=== PATIENT | female | born 1950 | race African-American/Black ===

== ENCOUNTER 2017-02-07 19:11 | Inpatient (IN) | payer MEDICARE ==
--- NOTE | ~2017-02-07 | DS ---
Discharge Summary [facility] [address] [place]. [address] NAME: VENITA FUNK : 50 STATUS : DIS IN PAT#: [id number] AGE: 66 ADM/REG DATE : 02/07/17 MR#: [id number] REPORT SERV DATE: 02/18/17 DICTATED BY: EDWIN XAVIER DATE: 02/18/17 REPORT STATUS : Draft TRANSCRIBED BY: MODMagdaelno DATE: 02/18/17 Data Collection from hospitalization DISCHARGE DIAGNOSES: 1. Seizure. 2. Noncompliance with medications. 3. End-stage renal disease. 4. Hypertension. 5. Anemia. 6. Congestive heart failure. 7. History of cerebrovascular accident. 8. Coronary artery disease. 9. Hyperlipidemia. 10.Tobacco use. CONSULTATIONS: None. PROCEDURES PERFORMED: CT scan of the brain without contrast, 02/07/2017. DISCHARGE MEDICATIONS: Ventolin 2 puffs via inhaler daily as needed, Zyloprim 100 mg daily, Cordarone 200 mg twice a day, Eliquis 2.5 mg daily, Lipitor 20 mg at bedtime, Coreg 6.25 mg twice a day, folic acid 1 mg daily, Fulton 5/325 half tablet every 6 hours as needed, Keppra 250 mg twice a day, Cozaar 50 mg at bedtime, Reglan 5 mg twice a day, Protonix 20 mg daily, and Lyrica 50 mg twice a day. CONDITION AT DISCHARGE: Stable. DISPOSITION: The patient was discharged home to be followed by Home Health Care on a renal diet with activities as instructed. She would follow up with dialysis as previously scheduled. HOSPITAL COURSE: This is a 66-year-old female, who has end-stage renal disease; hypertension, noncompliant; congestive heart failure; coronary artery disease; and a history of CVA; who had undergone dialysis on the day of this admission. She got off the bus and was walking across the yard and collapsed, and began having tonic-clonic seizure activity. She was transported to the emergency room for further evaluation and treatment. She had been hospitalized two weeks prior to this admission at [facility] with similar issues. On reviewing notes from that time, she had been admitted at [facility] with seizures and then transferred to [facility]. She had been seen by Neurology there. It was thought that the seizure may have been associated with hypoglycemia, but it was not entirely clear. She was started on oral Keppra and discharged home. Her family states that she does not take her medications regularly including the Keppra. According to them, they think she did not get it picked up until this week. On presentation here, her white count was 9.6, platelets were 217, and hemoglobin was 11.1. Chest x-ray showed low lung volumes, but no acute findings. Electrolytes revealed a potassium of 4.5, with BUN of 15, and creatinine 4.49, with a glucose of 85. Troponins of 0.05, with a magnesium of 1.6. She was admitted to the hospital at this time for further evaluation and treatment. Discharge Summary [address] [place]. [address] NAME: VENITA FUNK : 50 STATUS : DIS IN PAT#: [id number] AGE: 66 ADM/REG DATE : 02/07/17 MR#: [id number] REPORT SERV DATE: 02/18/17 DICTATED BY: EDWIN XAVIER DATE: 02/18/17 REPORT STATUS : Draft TRANSCRIBED BY: TUSHAR DATE: 02/18/17 Upon admission, review of her CT scan done at [facility] revealed no acute findings excluding "enlarged sella." An MRI was not recommended at that time. The Keppra was given. The patient would be held n.p.o. until the postictal state improves. CT scan of the brain without contrast was performed. There was atrophy with slightly more atrophy in the cerebellar hemispheres, question history of chronic phenytoin usage. Following day, she has had no further seizures. Today, complained of being dizzy. Creatinine level was 4.49. Cozaar was stopped. She did have some hypotension. Keppra was continued. On 02/09/2017, she complained of some foot pain, and complained of a headache. She had no further seizures. Her abdomen was soft and nontender. Creatinine level was now 8.24. Over the next couple of days, she continued to do well. She had no new complaints. Discharge planning was performed. Hemodialysis therapy was continued. She was evaluated by Physical Therapy. On 02/11/2017, she was alert and cooperative. She had no focal deficits. She had no edema. She had no further seizures. Her seizure was felt secondary to noncompliance. Discharge instructions were given. Due to her improved and stable condition, she was discharged home to be followed by Home Health Care with the above-stated instructions. Information collected by: Donna White I submit the above information as my discharge summary. [facility]/TUSHAR Edwin Xavier M.D. / [id number] CC: Sukh Feng M.D.
--- NOTE | ~2017-02-07 | HP ---
History And Physical [place] [id number] [facility] [place]. [address] NAME: VENITA FUNK : 50 STATUS : ADM IN PAT#: [id number] AGE: 66 ADM/REG DATE : 02/07/17 MR#: [id number] REPORT SERV DATE: 02/07/17 DICTATED BY: ORALIA MCGRAW DATE: 02/07/17 REPORT STATUS : Draft TRANSCRIBED BY: TUSHAR DATE: 02/07/17 DATE OF ADMISSION: 02/07/2017 CHIEF COMPLAINT: Seizure. HISTORY OF PRESENT ILLNESS: Ms Funk is a 66-year-old female with past medical history of end-stage renal disease, hypertension, noncompliance, congestive heart failure, coronary artery disease, and history of CVA who returned from dialysis today. She got off the bus and was walking across the yard and collapsed and began having tonic-clonic seizure activity. She was transported to the ER for further evaluation and treatment. She was hospitalized two weeks ago at [facility] with similar issues. Reviewing notes from that time, she had been admitted at [facility] with seizures and transferred to [facility]. She was seen by Neurology and there was thought that this may have been associated with hypoglycemia, but not entirely clear. She was started on oral Keppra and was discharged home. Her family states that she does not take her medications regularly including the Keppra. According to them, they think she did not get it picked up until this week. On presentation here, her WBC count was 9.6, hemoglobin 11.1, and platelets 217. Chest x-ray shows low lung volumes, but no acute findings. Electrolytes show a potassium of 4.5 with a BUN and creatinine of 15 and 4.49 with a glucose of 85. Her troponins were 0.05 with the magnesium of 1.6. Her CT scan is presently being done and the results are pending. PAST MEDICAL HISTORY: 1. End-stage renal disease, on hemodialysis Friday, Friday, Friday at [facility]. 2. Congestive heart failure. 3. Coronary artery disease, status post PCI in 2013. 4. History of CVA. 5. Hyperlipidemia. 6. Hypertension. FAMILY HISTORY: No documented renal disease. No prior history of seizures. SOCIAL HISTORY: She smokes cigarettes. No alcohol or drug use. Family is supportive and at bedside. HOME MEDICATIONS: 1. Albuterol two puffs inhaled daily. 2. Allopurinol 100 daily. 3. Amiodarone 200 twice a day. 4. Eliquis 2.5 daily. 5. Lipitor 20 daily. 6. Carvedilol 6.25 twice a day. 7. Folic acid 1 mg daily. 8. Hydrocodone/APAP 5/325 q.6 hours p.r.n. pain. 9. Keppra 250 twice a day. 10.Losartan 50 daily. History And Physical [address] [address] NAME: VENITA FUNK : 50 STATUS : ADM IN [facility]#: [id number] AGE: 66 ADM/REG DATE : 02/07/17 MR#: [id number] REPORT SERV DATE: 02/07/17 DICTATED BY: ORALIA MCGRAW DATE: 02/07/17 REPORT STATUS : Draft TRANSCRIBED BY: TUSHAR DATE: 02/07/17 11.Reglan 5 twice a day. 12.Protonix 20 daily. 13.Lyrica 50 mg twice a day. REVIEW OF SYSTEMS: All systems reviewed, negative excluding those mentioned and highlighted in the history of present illness. PHYSICAL EXAMINATION: VITAL SIGNS: Temperature 98.1, blood pressure 155/73, pulse 92, respiratory rate 15, and oxygen saturation 99%. GENERAL: This is a chronically ill, female, resting comfortably, somewhat sedate, appears postictal, but does arouse, in no acute distress. HEENT: Normocephalic and atraumatic. Oropharynx is clear. No exudate. NECK: Supple. No JVD or thyromegaly. No carotid bruits. Trachea midline. No stridor. CARDIOVASCULAR: Regular rate and rhythm. S1 and S2 without rubs or gallops. Point of maximal impulse is nondisplaced. RESPIRATORY: Clear to auscultation bilaterally. No wheeze, rhonchi, tachypnea, or accessory muscles in use. GI: Abdomen is soft, nontender, and nondistended. No hepatosplenomegaly appreciated. EXTREMITIES: No cyanosis, clubbing or edema. Distal pulses are 2+ symmetrically intact. SKIN: No rash or breakdown. Normal turgor. NEURO: Arouses. Moves all extremities to command. Alert and oriented to person and place, but confused on time. Strength is 3/5 x4 extremities. No obvious focality. SKIN: No rash or breakdown. Normal turgor. LABS AND DIAGNOSTIC DATA: Sodium 137, potassium 4.5, chloride 94, bicarb 31, BUN 15, creatinine 4.49, and glucose 85. WBC 9.6, hemoglobin 11.1, hematocrit 34.3, and platelets 217. ASSESSMENT: 1. Witnessed tonic-colonic seizure activity with recent presentation here in October and at [facility] two weeks ago. She did have an EEG here on 11/27, which showed no focal abnormalities. She had a CT scan done at [facility] that had no acute findings excluding "enlarged sella" that Neurology at that time did not recommend an MRI. Family questions her compliance with medications including Keppra that was recently started. 2. End-stage renal disease, on hemodialysis Friday, Friday, Friday. 3. Hypertension. 4. Coronary artery disease. 5. Hypertension. 6. ? diabetes mellitus. PLAN: 1. CT head, noncontrast. 2. Neurology consult. 3. IV Keppra for now. History And Physical [address] [address] NAME: VENITA FUNK : 50 STATUS : ADM IN [facility]#: [id number] AGE: 66 ADM/REG DATE : 02/07/17 MR#: [id number] REPORT SERV DATE: 02/07/17 DICTATED BY: ORALIA MCGRAW DATE: 02/07/17 REPORT STATUS : Draft TRANSCRIBED BY: MODL DATE: 02/07/17 4. N.p.o. until postictal state improves. 5. Records from [facility]. [facility] to follow. [facility]/TUSHAR Oralia Mcgraw M.D. / [id number] CC: Oralia Mcgraw M.D.
[2017-02-07 16:56] LABS: BASOPHILS 0.2 %; BASOPHILS ABSOLUTE 0.02 10/3/uL (0.0-0.16); EOSINOPHILS 1.3 %; EOSINOPHILS ABSOLUTE 0.12 10/3/uL (0.0-0.53); ER CBC TAT 0 Hrs 08 Mins; HEMOGLOBIN 11.1 g/dL (12.0-16.0); IMMATURE GRANULOCYTES 0.1 %; IMMATURE GRANULOCYTES ABSOLUTE 0.01 10/3/uL (0.0-0.11); LYMPHOCYTES 8.4 %; MEAN CORPUS HGB CONC 32.4 g/dL (32.0-36.0); MEAN CORPUSCULAR HEMOGLOB 31.2 pg (26.0-34.0); MEAN PLATELET VOLUME 10.7 fL (9.2-13.0); MONOCYTES 7.2 %; MONOCYTES ABSOLUTE 0.69 10/3/uL (0.21-1.20); NEUTROPHILS 82.8 %; NEUTROPHILS ABSOLUTE 7.94 10/3/uL (2.02-8.40); PLATELET COUNT 217 10/3/uL (150-400); RBC DISTRIBUTION WIDTH 16.7 % (12.0-16.0); RED CELL COUNT 3.56 10/6/uL (4.0-5.6); WHITE BLOOD CELLS 9.6 10/3/uL (4.5-10.5)
[2017-02-07 16:57] LABS: HEMATOCRIT 34.3 % (36.0-48.0); MANUAL DIFF NO %; MEAN CORPUSCULAR VOLUME 96.3 fL (80-100)
[2017-02-07 17:03] LABS: INTERNATIONAL NORMAL RATI 1.2 UNITS (-); PROTIME (NOT ORD) 15.2 SEC (12.0-14.5)
[2017-02-07 17:04] LABS: PARTIAL THROMBO TIME 36.4 SEC (22.5-37.2)
[2017-02-07 17:06] LABS: D-DIMER QUANTITATIVE 2.63 ug/mLFEU (< 0.50)
[2017-02-07 17:11] LABS: CHLORIDE, SERUM 94 MMOL/L (96-112); GLUCOSE, SERUM 85 MG/DL (60-99); POTASSIUM, SERUM 4.5 MMOL/L (3.5-5.3); SODIUM, SERUM 137 MMOL/L (135-148)
[2017-02-07 17:15] LABS: BUN (BLOOD UREA NITROGEN) 15 MG/DL (6-23); CALCIUM, SERUM 9.7 MG/DL (8.5-10.4); CO2 (CARBON DIOXIDE) 31 MMOL/L (24-34); CREATININE 4.49 MG/DL (0.55-1.02); GFR AFRICAN AMERICAN 11 ML/MIN (>=60); GFR NON AFRICAN AMERICAN 10 ML/MIN (>=60)
[2017-02-07 17:20] LABS: CHEST PAIN PROFILE TAT 0 Hrs 32 Mins; TROPONIN I 0.05 NG/ML (<0.05)
[~2017-02-07 19:11] MED LIST: *UNABLE1; APRES25 PO; ASA5GR PO; ASAB PO; ASABAYER PO; AURYXIA 210MG PO; CARASPUDL PO; CARD120 PO; CARDCD120 PO; CARDCD240 PO; CARTIA XT120 MG/24 PO; CELEXA; CELEXA20 PO; CORDARONE PO; COREG; COREG12 PO; COREG25 PO; COREG3 PO; COREG6 PO; COZ25 PO; COZ50 PO; DIALYVITE800 MG PO; DILTIAZEM PO; DIOVAN320 MG PO; ELIQUIS; ELIQUIS 2.5 MG2.5 MG PO; EPOETIN ALFA IV; FOLIC PO; FOSRENOL PO; HABIT14 TOP; HALF81 PO; KEPPRA250 PO; KLOR-CON 1010 MEQ PO; KLOR-CON M1010 MEQ PO; KLOR-CON M2020 MEQ PO; L20 PO; L80 PO; LIPITOR20 PO; LORT7 PO; LOSARTAN; LYRICA50 PO; LYRICA75 PO; MAGNEBIND PO; METHOC750B PO; NORCO1 TA1 PO; NORV25 PO; PCET PO; PLAVIX PO; PR12.5 PO; PR25 PO; PRIN10 PO; PRIN20 PO; PROMETHAZINE; PROTONIX PO; PROTONIX20 MG PO; PROVHFA INH; REG PO; REG5 PO; REM15 PO; RENAL SFTGLS1 MG OR; REQUIP PO; REQUIP5 PO; ROCALTROL 0.0.25 MCG OR; SENSIPAR; SENSIPAR30 M1 PO; SINGULAIR1; SINGULAIR1 PO; SPIRO50 PO; SYMBICORT 160/41 INH INH; TAZTIA X4 PO; TRAMADOL; TUMSROLL PO; ULTRAM50 PO; VENTOLIN HFA; VENTOLIN HFA INH; VENTOLIN HFA PO; Z100 PO; ZOCOR10 PO; ZOCOR20 PO; ZOFRAN4 PO; ZYRTEC ALLGY10 MG PO; [UNRECOGNIZED DRUG - REMARK]; [UNRECOGNIZED DRUG - REMARK]; [UNRECOGNIZED DRUG - REMARK]; [UNRECOGNIZED DRUG - REMARK]; [UNRECOGNIZED DRUG - REMARK]; [UNRECOGNIZED DRUG - REMARK]
[2017-02-08 10:34] LABS: BUN (BLOOD UREA NITROGEN) 26 MG/DL (6-23); CALCIUM, SERUM 8.8 MG/DL (8.5-10.4); CHLORIDE, SERUM 97 MMOL/L (96-112); CK-MB < 0.5 NG/ML; CO2 (CARBON DIOXIDE) 25 MMOL/L (24-34); CPK 22 U/L (0-200); CREATININE 6.43 MG/DL (0.55-1.02); GFR AFRICAN AMERICAN 7 ML/MIN (>=60); GFR NON AFRICAN AMERICAN 6 ML/MIN (>=60); GLUCOSE, SERUM 137 MG/DL (60-99); PHOSPHORUS, SERUM 5.1 MG/DL (2.5-4.5); POTASSIUM, SERUM 5.1 MMOL/L (3.5-5.3); SODIUM, SERUM 137 MMOL/L (135-148)
[2017-02-09 06:13] LABS: BASOPHILS 0.4 %; BASOPHILS ABSOLUTE 0.03 10/3/uL (0.0-0.16); EOSINOPHILS 2.6 %; HEMOGLOBIN 9.8 g/dL (12.0-16.0); LYMPHOCYTES 17.7 %; LYMPHOCYTES ABSOLUTE 1.38 10/3/uL (0.67-4.30); MEAN CORPUS HGB CONC 32.1 g/dL (32.0-36.0); MEAN CORPUSCULAR HEMOGLOB 30.2 pg (26.0-34.0); MEAN CORPUSCULAR VOLUME 94.1 fL (80-100); MEAN PLATELET VOLUME 10.4 fL (9.2-13.0); MONOCYTES ABSOLUTE 0.62 10/3/uL (0.21-1.20); NEUTROPHILS 71.3 %; NEUTROPHILS ABSOLUTE 5.56 10/3/uL (2.02-8.40); PLATELET COUNT 214 10/3/uL (150-400); RBC DISTRIBUTION WIDTH 16.7 % (12.0-16.0); RED CELL COUNT 3.24 10/6/uL (4.0-5.6); WHITE BLOOD CELLS 7.8 10/3/uL (4.5-10.5)
[2017-02-09 06:15] LABS: HEMATOCRIT 30.5 % (36.0-48.0); MANUAL DIFF NO %
[2017-02-09 06:23] LABS: CALCIUM, SERUM 9.6 MG/DL (8.5-10.4); CHLORIDE, SERUM 95 MMOL/L (96-112); CO2 (CARBON DIOXIDE) 29 MMOL/L (24-34); PHOSPHORUS, SERUM 5.7 MG/DL (2.5-4.5); POTASSIUM, SERUM 4.7 MMOL/L (3.5-5.3); SODIUM, SERUM 137 MMOL/L (135-148)
[2017-02-09 06:24] LABS: BUN (BLOOD UREA NITROGEN) 34 MG/DL (6-23); CREATININE 8.24 MG/DL (0.55-1.02); GFR AFRICAN AMERICAN 5 ML/MIN (>=60); GFR NON AFRICAN AMERICAN 5 ML/MIN (>=60); GLUCOSE, SERUM 98 MG/DL (60-99)
[2017-02-10 14:14] LABS: BASOPHILS 0.5 %; BASOPHILS ABSOLUTE 0.04 10/3/uL (0.0-0.16); EOSINOPHILS 2.7 %; HEMATOCRIT 29.3 % (36.0-48.0); HEMOGLOBIN 9.8 g/dL (12.0-16.0); IMMATURE GRANULOCYTES 0.1 %; IMMATURE GRANULOCYTES ABSOLUTE 0.01 10/3/uL (0.0-0.11); LYMPHOCYTES 17.8 %; LYMPHOCYTES ABSOLUTE 1.31 10/3/uL (0.67-4.30); MEAN CORPUS HGB CONC 33.4 g/dL (32.0-36.0); MEAN CORPUSCULAR HEMOGLOB 31.2 pg (26.0-34.0); MEAN CORPUSCULAR VOLUME 93.3 fL (80-100); MEAN PLATELET VOLUME 10.3 fL (9.2-13.0); MONOCYTES 7.3 %; MONOCYTES ABSOLUTE 0.54 10/3/uL (0.21-1.20); NEUTROPHILS 71.6 %; NEUTROPHILS ABSOLUTE 5.27 10/3/uL (2.02-8.40); PLATELET COUNT 217 10/3/uL (150-400); RBC DISTRIBUTION WIDTH 16.5 % (12.0-16.0); RED CELL COUNT 3.14 10/6/uL (4.0-5.6); WHITE BLOOD CELLS 7.4 10/3/uL (4.5-10.5)
[2017-02-10 14:15] LABS: MANUAL DIFF NO %
[2017-02-10 14:34] LABS: ALBUMIN 2.9 G/DL (3.5-5.0); CALCIUM, SERUM 9.1 MG/DL (8.5-10.4); CHLORIDE, SERUM 97 MMOL/L (96-112); CO2 (CARBON DIOXIDE) 25 MMOL/L (24-34); POTASSIUM, SERUM 5.4 MMOL/L (3.5-5.3); SODIUM, SERUM 136 MMOL/L (135-148)
[2017-02-10 14:35] LABS: BUN (BLOOD UREA NITROGEN) 49 MG/DL (6-23); GFR AFRICAN AMERICAN 4 ML/MIN (>=60); GFR NON AFRICAN AMERICAN 3 ML/MIN (>=60); GLUCOSE, SERUM 124 MG/DL (60-99)
[2017-02-11 06:07] LABS: BASOPHILS 0.5 %; BASOPHILS ABSOLUTE 0.04 10/3/uL (0.0-0.16); EOSINOPHILS 2.6 %; HEMATOCRIT 30.9 % (36.0-48.0); HEMOGLOBIN 9.9 g/dL (12.0-16.0); IMMATURE GRANULOCYTES 0.3 %; IMMATURE GRANULOCYTES ABSOLUTE 0.02 10/3/uL (0.0-0.11); LYMPHOCYTES 15.6 %; LYMPHOCYTES ABSOLUTE 1.18 10/3/uL (0.67-4.30); MEAN CORPUSCULAR HEMOGLOB 30.7 pg (26.0-34.0); MEAN PLATELET VOLUME 10.7 fL (9.2-13.0); MONOCYTES ABSOLUTE 0.53 10/3/uL (0.21-1.20); NEUTROPHILS ABSOLUTE 5.61 10/3/uL (2.02-8.40); PLATELET COUNT 226 10/3/uL (150-400); RBC DISTRIBUTION WIDTH 16.4 % (12.0-16.0); RED CELL COUNT 3.22 10/6/uL (4.0-5.6); WHITE BLOOD CELLS 7.6 10/3/uL (4.5-10.5)
[2017-02-11 06:08] LABS: MANUAL DIFF NO %
[2017-02-11 06:13] LABS: ALBUMIN 2.8 G/DL (3.5-5.0); CALCIUM, SERUM 8.9 MG/DL (8.5-10.4); CHLORIDE, SERUM 101 MMOL/L (96-112); CO2 (CARBON DIOXIDE) 29 MMOL/L (24-34); POTASSIUM, SERUM 5.1 MMOL/L (3.5-5.3); SODIUM, SERUM 140 MMOL/L (135-148)
[2017-02-11 06:14] LABS: BUN (BLOOD UREA NITROGEN) 21 MG/DL (6-23); CREATININE 6.79 MG/DL (0.55-1.02); GFR AFRICAN AMERICAN 7 ML/MIN (>=60); GFR NON AFRICAN AMERICAN 6 ML/MIN (>=60); GLUCOSE, SERUM 76 MG/DL (60-99); PHOSPHORUS, SERUM 5.1 MG/DL (2.5-4.5)
== END 2017-02-11 17:17 | disposition home health service (06) | DRG 100 ==
LOC: ER 19:11 → 1SO 19:39
PROVIDERS: Emergency Medicine; Internal Medicine Nephrology; Registered Nurse
PROC: 5A1D00Z (ICD-10-PCS; principal; 2017-02-10)
DX: G40.409 Other generalized epilepsy and epileptic syndromes, not intractable, without status epilepticus (principal); N18.6 End stage renal disease; I13.2 Hypertensive heart and chronic kidney disease with heart failure and with stage 5 chronic kidney disease, or end stage renal disease; I50.9 Heart failure, unspecified; D63.1 Anemia in chronic kidney disease; I25.10 Atherosclerotic heart disease of native coronary artery without angina pectoris; E78.5 Hyperlipidemia, unspecified; F17.210 Nicotine dependence, cigarettes, uncomplicated; Z99.2 Dependence on renal dialysis; Z91.14 Patient's other noncompliance with medication regimen; Z86.73 Personal history of transient ischemic attack (TIA), and cerebral infarction without residual deficits; Z79.01 Long term (current) use of anticoagulants; Z79.891 Long term (current) use of opiate analgesic; Z79.899 Other long term (current) drug therapy
CPT/HCPCS: 70450; 71010; 80048; 80069; 81001; 82550; 82553; 82962; 83735; 84484; 85025; 85379; 85610; 85730; 93005; 96374; 96375; 97161-GP; 99291; A9270-GY; G0257; G8978-CI-GP; G8979-CI-GP; G8980-CI-GP; J1953

== ENCOUNTER 2017-03-19 22:33 | Emergency (ER) | payer MEDICARE, OTHER ==
[2017-03-19 22:11] LABS: BASOPHILS 0.6 %; BASOPHILS ABSOLUTE 0.04 10/3/uL (0.0-0.16); EOSINOPHILS 3.5 %; EOSINOPHILS ABSOLUTE 0.25 10/3/uL (0.0-0.53); HEMATOCRIT 33.4 % (36.0-48.0); HEMOGLOBIN 10.5 g/dL (12.0-16.0); IMMATURE GRANULOCYTES 0.3 %; IMMATURE GRANULOCYTES ABSOLUTE 0.02 10/3/uL (0.0-0.11); LYMPHOCYTES 18.1 %; LYMPHOCYTES ABSOLUTE 1.31 10/3/uL (0.67-4.30); MANUAL DIFF NO %; MEAN CORPUS HGB CONC 31.4 g/dL (32.0-36.0); MEAN CORPUSCULAR HEMOGLOB 31.3 pg (26.0-34.0); MEAN CORPUSCULAR VOLUME 99.4 fL (80-100); MEAN PLATELET VOLUME 11.2 fL (9.2-13.0); MONOCYTES 9.7 %; NEUTROPHILS 67.8 %; PLATELET COUNT 181 10/3/uL (150-400); RBC DISTRIBUTION WIDTH 17.1 % (12.0-16.0); RED CELL COUNT 3.36 10/6/uL (4.0-5.6); WHITE BLOOD CELLS 7.2 10/3/uL (4.5-10.5)
[2017-03-19 22:21] LABS: INTERNATIONAL NORMAL RATI 1.3 UNITS (-); PARTIAL THROMBO TIME 31.7 SEC (22.5-37.2); PROTIME (NOT ORD) 16.4 SEC (12.0-14.5)
[2017-03-19 22:30] LABS: CHLORIDE, SERUM 100 MMOL/L (96-112); CO2 (CARBON DIOXIDE) 32 MMOL/L (24-34); GFR AFRICAN AMERICAN 7 ML/MIN (>=60); GFR NON AFRICAN AMERICAN 6 ML/MIN (>=60); GLUCOSE, SERUM 75 MG/DL (60-99); POTASSIUM, SERUM 4.2 MMOL/L (3.5-5.3); SODIUM, SERUM 140 MMOL/L (135-148)
[2017-03-19 22:31] LABS: BUN (BLOOD UREA NITROGEN) 17 MG/DL (6-23)
[2017-03-19 22:32] LABS: CHEST PAIN PROFILE TAT 0 Hrs 27 Mins; TROPONIN I 0.05 NG/ML (<0.05)
== END 2017-03-20 00:38 | disposition home or self-care (01) ==
LOC: ER 22:33
PROVIDERS: Hospitalist
DX: R55 Syncope and collapse (principal); R79.89 Other specified abnormal findings of blood chemistry; I13.2 Hypertensive heart and chronic kidney disease with heart failure and with stage 5 chronic kidney disease, or end stage renal disease; I50.9 Heart failure, unspecified; N18.6 End stage renal disease; Z86.73 Personal history of transient ischemic attack (TIA), and cerebral infarction without residual deficits; Z99.2 Dependence on renal dialysis; Z79.899 Other long term (current) drug therapy
CPT/HCPCS: 70450; 71010; 80048; 83735; 84484; 85025; 85610; 85730; 93005; 99285

== ENCOUNTER 2017-04-09 18:31 | Emergency (ER) | payer MEDICARE, OTHER ==
[2017-04-09 17:04] LABS: BASOPHILS 0.4 %; BASOPHILS ABSOLUTE 0.03 10/3/uL (0.0-0.16); EOSINOPHILS 2.7 %; EOSINOPHILS ABSOLUTE 0.23 10/3/uL (0.0-0.53); ER CBC TAT 0 Hrs 05 Mins; HEMATOCRIT 34.9 % (36.0-48.0); HEMOGLOBIN 11.4 g/dL (12.0-16.0); IMMATURE GRANULOCYTES 0.2 %; IMMATURE GRANULOCYTES ABSOLUTE 0.02 10/3/uL (0.0-0.11); LYMPHOCYTES 16.6 %; LYMPHOCYTES ABSOLUTE 1.42 10/3/uL (0.67-4.30); MEAN CORPUS HGB CONC 32.7 g/dL (32.0-36.0); MEAN CORPUSCULAR HEMOGLOB 31.4 pg (26.0-34.0); MEAN PLATELET VOLUME 11.3 fL (9.2-13.0); MONOCYTES 6.7 %; MONOCYTES ABSOLUTE 0.57 10/3/uL (0.21-1.20); NEUTROPHILS 73.4 %; NEUTROPHILS ABSOLUTE 6.28 10/3/uL (2.02-8.40); PLATELET COUNT 176 10/3/uL (150-400); RBC DISTRIBUTION WIDTH 15.9 % (12.0-16.0); RED CELL COUNT 3.63 10/6/uL (4.0-5.6); WHITE BLOOD CELLS 8.6 10/3/uL (4.5-10.5)
[2017-04-09 17:05] LABS: MANUAL DIFF NO %; MEAN CORPUSCULAR VOLUME 96.1 fL (80-100)
[2017-04-09 17:19] LABS: A/G RATIO 0.6 (0.7-1.9); ALBUMIN 2.9 G/DL (3.5-5.0); ALKALINE PHOSPHATASE 88 U/L (45-117); BUN (BLOOD UREA NITROGEN) 20 MG/DL (6-23); CALCIUM, SERUM 9.5 MG/DL (8.5-10.4); CHLORIDE, SERUM 99 MMOL/L (96-112); CO2 (CARBON DIOXIDE) 33 MMOL/L (24-34); GFR AFRICAN AMERICAN 7 ML/MIN (>=60); GFR NON AFRICAN AMERICAN 6 ML/MIN (>=60); GLOBULIN 4.8 G/DL (2.5-4.1); GLUCOSE, SERUM 75 MG/DL (60-99); POTASSIUM, SERUM 3.7 MMOL/L (3.5-5.3); SGOT(AST) 10 U/L (5-40); SGPT(ALT) 15 U/L (5-65); SODIUM, SERUM 137 MMOL/L (135-148); TOTAL BILIRUBIN 0.4 MG/DL (0-1.2); TOTAL PROTEIN 7.7 G/DL (6.0-8.5); TROPONIN I 0.04 NG/ML (<0.05)
== END 2017-04-09 19:52 | disposition home or self-care (01) ==
LOC: ER 18:31
PROVIDERS: Emergency Medicine
DX: R41.82 Altered mental status, unspecified (principal); Z91.19 Patient's noncompliance with other medical treatment and regimen; I13.2 Hypertensive heart and chronic kidney disease with heart failure and with stage 5 chronic kidney disease, or end stage renal disease; N18.6 End stage renal disease; I50.9 Heart failure, unspecified; I25.2 Old myocardial infarction; Z95.5 Presence of coronary angioplasty implant and graft; K21.9 Gastro-esophageal reflux disease without esophagitis; Z86.73 Personal history of transient ischemic attack (TIA), and cerebral infarction without residual deficits; F32.9 Major depressive disorder, single episode, unspecified; D41.9 Neoplasm of uncertain behavior of unspecified urinary organ; F17.200 Nicotine dependence, unspecified, uncomplicated; I25.10 Atherosclerotic heart disease of native coronary artery without angina pectoris; Z79.899 Other long term (current) drug therapy
CPT/HCPCS: 70450; 71020; 80053; 84484; 85025; 87040; 93005; 99285

== ENCOUNTER 2017-04-19 07:38 | Emergency (ER) | payer MEDICARE, OTHER ==
[2017-04-19 07:35] LABS: BASOPHILS 0.6 %; BASOPHILS ABSOLUTE 0.04 10/3/uL (0.0-0.16); EOSINOPHILS 2.5 %; EOSINOPHILS ABSOLUTE 0.17 10/3/uL (0.0-0.53); HEMATOCRIT 32.5 % (36.0-48.0); HEMOGLOBIN 10.7 g/dL (12.0-16.0); IMMATURE GRANULOCYTES 0.4 %; IMMATURE GRANULOCYTES ABSOLUTE 0.03 10/3/uL (0.0-0.11); LYMPHOCYTES 14.1 %; LYMPHOCYTES ABSOLUTE 0.97 10/3/uL (0.67-4.30); MEAN CORPUS HGB CONC 32.9 g/dL (32.0-36.0); MEAN CORPUSCULAR HEMOGLOB 30.8 pg (26.0-34.0); MEAN CORPUSCULAR VOLUME 93.7 fL (80-100); MEAN PLATELET VOLUME 10.2 fL (9.2-13.0); MONOCYTES 9.6 %; MONOCYTES ABSOLUTE 0.66 10/3/uL (0.21-1.20); NEUTROPHILS 72.8 %; PLATELET COUNT 223 10/3/uL (150-400); RBC DISTRIBUTION WIDTH 15.9 % (12.0-16.0); RED CELL COUNT 3.47 10/6/uL (4.0-5.6); WHITE BLOOD CELLS 6.9 10/3/uL (4.5-10.5)
[2017-04-19 07:36] LABS: MANUAL DIFF NO %
[2017-04-19 07:49] LABS: A/G RATIO 0.6 (0.7-1.9); ALBUMIN 2.5 G/DL (3.5-5.0); ALKALINE PHOSPHATASE 82 U/L (45-117); BUN (BLOOD UREA NITROGEN) 22 MG/DL (6-23); CALCIUM, SERUM 9.2 MG/DL (8.5-10.4); CHLORIDE, SERUM 103 MMOL/L (96-112); CO2 (CARBON DIOXIDE) 31 MMOL/L (24-34); GLOBULIN 4.5 G/DL (2.5-4.1); GLUCOSE, SERUM 73 MG/DL (60-99); SGPT(ALT) 13 U/L (5-65); SODIUM, SERUM 139 MMOL/L (135-148); TOTAL BILIRUBIN 0.7 MG/DL (0-1.2)
[2017-04-19 07:51] LABS: CREATININE 7.68 MG/DL (0.55-1.02); GFR AFRICAN AMERICAN 6 ML/MIN (>=60); GFR NON AFRICAN AMERICAN 5 ML/MIN (>=60); POTASSIUM, SERUM 4.5 MMOL/L (3.5-5.3); SGOT(AST) 19 U/L (5-40)
== END 2017-04-19 09:24 | disposition home or self-care (01) ==
LOC: ER 07:38
PROVIDERS: Nurse Practitioner
DX: R11.2 Nausea with vomiting, unspecified (principal); R19.7 Diarrhea, unspecified; I13.2 Hypertensive heart and chronic kidney disease with heart failure and with stage 5 chronic kidney disease, or end stage renal disease; N18.6 End stage renal disease; I50.9 Heart failure, unspecified; D64.9 Anemia, unspecified; G89.29 Other chronic pain; M79.673 Pain in unspecified foot; E78.00 Pure hypercholesterolemia, unspecified; I25.10 Atherosclerotic heart disease of native coronary artery without angina pectoris; F17.200 Nicotine dependence, unspecified, uncomplicated; Z86.73 Personal history of transient ischemic attack (TIA), and cerebral infarction without residual deficits; Z99.2 Dependence on renal dialysis; Z90.710 Acquired absence of both cervix and uterus; Z79.899 Other long term (current) drug therapy
CPT/HCPCS: 74022; 80053; 83690; 85025; 93005; 96374; 99284; J2405